=== PATIENT | female | born 1980 | race Hispanic/Latino ===

== ENCOUNTER 2020-03-22 17:16 | Observation (INO) | payer MEDICAID ==
[~2020-03-22] VITALS: Ht 165.1 cm; Wt 84.4 kg
[2020-03-22 18:26] LABS: APPEARANCE,URINE Clear (CLEAR); BILIRUBIN,URINE Small (NEGATIVE); COLOR,URINE Dark Yellow (YELLOW); GLUCOSE, URINE (UA) Negative (NEGATIVE); KETONES,URINE >=80 mg/dL (NEGATIVE); LEUKOCYTE ESTERASE ,URINE Trace (NEGATIVE); NITRATE,URINE Negative (NEGATIVE); OCCULT BLOOD,URINE Negative (NEGATIVE); PROTEIN,URINE Trace mg/dL (NEGATIVE)
[2020-03-22 19:12] LABS: AMORPHOUS SEDIMENT,UR Few /LPF (None Seen); BACTERIA,URINE Rare /HPF (None Seen); MUCUS,URINE Few LPF (None Seen); RBC,URINE None Seen /HPF (0-1); SQUAMOUS EPITHELIAL CELL,UR 0-2 /HPF (0-2); WBC,URINE 0-1 /HPF (0-1)
[2020-03-22] MEDS ORDERED: LACTATED RINGERS 1000ML 1,000 ML IV SCH (19:30)
[2020-03-22] MEDS ORDERED: ACETAMINOPHEN EXTRA STRENGTH 500 MG TABLET PO SCH (20:30)
== END 2020-03-22 20:35 | disposition home or self-care (01) ==
LOC: EDH 17:16 → EDBD 17:17 → LDH 17:17
PROVIDERS: ADMIT Obstetrics & Gynecology; ATTEND Obstetrics & Gynecology
DX: O26.893 Other specified pregnancy related conditions, third trimester (principal); M54.5 Low back pain; Z3A.29 29 weeks gestation of pregnancy
CPT/HCPCS: 81001; 96360; 99284; G0378 ×3; J7120